=== PATIENT | female | born 1985 | race Caucasian/White ===

== ENCOUNTER 2023-06-19 16:19 | Outpatient (CLI) | payer OTHER, SELFPAY | END 2023-06-19 16:20 | disposition home or self-care (01) | LOC: NFLDUCREF 16:22 | PROVIDERS: Visit Provider Registered Nurse | DX: N39.0 Urinary tract infection, site not specified (principal); K62.9 Disease of anus and rectum, unspecified | CPT/HCPCS: 87086; 87529 ==